=== PATIENT | female | born 1950 | race Caucasian/White ===

== ENCOUNTER → 2022-01-08 11:58 | Outpatient (BNVA) | payer OTHER, SELFPAY | PROVIDERS: Visit Provider Internal Medicine | DX: R76.8 Other specified abnormal immunological findings in serum (principal); M35.1 Other overlap syndromes | CPT/HCPCS: 36415; 80053; 81001; 82550; 85025; 85651; 86140; 86160; 86162; 86235; 86255; 86376; 86480; 86704; 86803; 87340 ==

== ENCOUNTER → 2022-01-22 15:22 | Outpatient (BNVA) | payer OTHER, SELFPAY | PROVIDERS: Visit Provider Internal Medicine | DX: R76.8 Other specified abnormal immunological findings in serum (principal); M35.1 Other overlap syndromes | CPT/HCPCS: 82728; 83540; 83735; 84100; 84443; 86480 ==

== ENCOUNTER 2022-11-05 13:47 | Outpatient (CLI) | payer OTHER, SELFPAY ==
--- NOTE | 2022-11-05 13:52 | MM_ITS ---
WS: [id number] BILATERAL 3D TOMOSYNTHESIS DIGITAL SCREENING MAMMOGRAPHY WITH CAD CLINICAL INFORMATION: SCREENING HISTORY: Screening mammogram. No current complaints. COMPARISON: TECHNIQUE: Bilateral CC and MLO views. FINDINGS: The breasts are composed of heterogeneous fibroglandular density tissue, which can limit the detectio n of small underlying mass lesions. No suspicious mass, asymmetry, calcifications, or architectural d istortion. No evidence of malignancy. Punctate and lucent centered calcifications. MM/[place] [id number] IMPRESSION: BI-RADS: 2-Benign FOLLOW UP: 1 Year Follow-up Recommend return to annual screening mammography.
== END 2022-11-05 13:48 | disposition home or self-care (01) ==
LOC: RAD 13:48
PROVIDERS: Visit Provider Family Medicine
DX: Z12.31 Encounter for screening mammogram for malignant neoplasm of breast (principal)
CPT/HCPCS: 77063; 77067

== ENCOUNTER → 2022-12-17 11:30 | Outpatient (BNVA) | payer OTHER, SELFPAY | PROVIDERS: PCP Family Medicine; Visit Provider Internal Medicine | DX: M06.9 Rheumatoid arthritis, unspecified (principal) | CPT/HCPCS: 36415; 80053; 82550; 85025; 85651; 86140 ==

== ENCOUNTER → 2022-12-17 12:59 | Outpatient (BNVA) | payer OTHER, SELFPAY | PROVIDERS: PCP Family Medicine; Visit Provider Internal Medicine | DX: M06.9 Rheumatoid arthritis, unspecified (principal); I73.9 Peripheral vascular disease, unspecified; M35.1 Other overlap syndromes; G25.81 Restless legs syndrome; M54.50 Low back pain, unspecified; R76.8 Other specified abnormal immunological findings in serum; E61.1 Iron deficiency | CPT/HCPCS: 73562 ==

== ENCOUNTER 2023-01-01 10:32 | Outpatient (CLI) | payer OTHER, SELFPAY ==
--- NOTE | 2023-01-01 13:00 | USCV_ITS ---
Kenisha Dotson Age: 72 Gender: F : 1950 Exam Date: 01/01/2023 13:28 Ordering Phys: Jonnathan Rice MD Technologist: Exam Location: [facility] [place]_ Indication: pad RIGHT LEFT Brachial 145.00 mmHg Brachial 144.00 mmHg Pressure (mmHg) Waveform Pressure (mmHg) Waveform 157.00 SENIOR SALES DIRECTOR 159.00 154.00 DPA 149.00 1.07 Ankle/Brachial Index 1.10 154.00 Pre-Exercise Toe Pressure 131.00 1.06 Pre-Exercise Toe/Brachial Index 0.90 FINDINGS Resting KYUNG 1.07 on the right and 1.10 on the left Resting TBI 1.06 on the right and 0.9 on the left CONCLUSIONS Normal resting ABIs and TBIs bilaterally, suggesting no significant arterial obstruction Dr Sobia Potts MD [facility] (Electronically Signed) Final Date: 05 January 2023 08:01 S
== END 2023-01-01 10:33 | disposition home or self-care (01) ==
PROVIDERS: PCP Family Medicine; Visit Provider Internal Medicine
DX: I73.9 Peripheral vascular disease, unspecified (principal); M35.1 Other overlap syndromes
CPT/HCPCS: 93922

== ENCOUNTER 2023-02-08 12:58 | Outpatient (CLI) | payer MEDICARE, SELFPAY ==
--- NOTE | 2023-02-08 13:30 | USCV_ITS ---
Gilles Lux Kenisha Age: 72 Gender: F : 1950 Exam Date: 02/08/2023 13:31 Ordering Phys: Jonnathan Rice MD Technologist: MANOLO Exam Location: [facility] [place] Indication: restless leg syndrome PROCEDURES: Venous duplex imaging was performed in bilateral lower extremities. The following venous structures were evaluated: common femoral vein, profunda vein, proximal portion of the greater saphenous vein, superficial femoral vein, and the popliteal vein. In addition, the posterior tibial and peroneal trunk were evaluated. Serial compression, augmentation maneuvers, and spectral Doppler flow evaluation were performed. FINDINGS: Normal 2-D Doppler and augmentation and compressibility throughout the lower extremity venous structures. Additional imaging through the proximal calf veins also reveals no thrombus. Limited evaluation of the greater saphenous vein is patent with no thrombus. CONCLUSIONS No evidence of right lower extremity DVT. No evidence of left lower extremity DVT. Damon Moore MD (Electronically Signed) Final Date: 08 Feb 2023 15:34 S
== END 2023-02-08 12:59 | disposition home or self-care (01) ==
PROVIDERS: PCP Family Medicine; Visit Provider Internal Medicine
DX: G25.81 Restless legs syndrome (principal); M54.50 Low back pain, unspecified; M35.1 Other overlap syndromes
CPT/HCPCS: 36415; 80053; 82550; 85025; 85651; 86140; 93970

== ENCOUNTER 2023-02-22 14:40 | Oncology outpatient (recurring) (ONCR) | payer OTHER, SELFPAY ==
[2023-02-22 15:58] LABS: Basophils # 0.1 10^3/uL (0.0-0.1); Basophils % 0.9 %; Eosinophils # 0.1 10^3/uL (0.0-0.8); Eosinophils % 1.1 %; Hemoglobin 11.4 g/dL (11.5-15.3); Mean Corpuscular Hemoglobin 24.9 pg (28.0-34.0); Mean Platelet Volume 10.3 fL (7.4-10.4); Monocytes # 0.9 10^3/uL (0.2-0.9); Neutrophils # 9.36 10^3/uL (1.8-7.7); Neutrophils % 74.7 %; Nucleated Red Blood Cells % 0 %; Platelet Count 294 10^3/cmm (130-400); Red Blood Count 4.58 10^6/uL (4.1-5.3); Red Cell Distribution Width 17.3 % (12.1-15.1); White Blood Count 12.5 10^3/uL (4.0-10.0)
[2023-02-22 17:12] LABS: Reticulocyte % 1.9 % (0.5-2.0)
[2023-02-22 17:36] LABS: Ferritin 96 ng/mL (15-150); Iron 26 ug/dL (37-145); Percent Saturation 7.4 % (20-50); Total Iron Binding Capacity 349 mcg/dl; Unsaturated Iron Binding 323 ug/dL (112-347)
[2023-02-22 17:52] LABS: Vitamin B12 1861 pg/mL (232-1245)
[2023-02-22 18:05] LABS: Folate Level > 20.0 ng/mL (4.8-37.3)
== END 2023-03-19 23:59 | disposition home or self-care (01) ==
PROVIDERS: PCP Family Medicine; Visit Provider Internal Medicine Hematology & Oncology
DX: D64.9 Anemia, unspecified (principal); E61.1 Iron deficiency
CPT/HCPCS: 36415; 82607; 82728; 82746; 83540; 83550; 85025; 85045

== ENCOUNTER 2023-03-25 09:52 | Oncology outpatient (recurring) (ONCR) | payer OTHER, SELFPAY ==
[2023-03-25 10:04] VITALS: BP 158/85; PULSE 73; RESP 18; TEMP 36.3; O2SAT 95
[2023-03-25 10:18] LABS: Basophils # 0.1 10^3/uL (0.0-0.1); Basophils % 0.7 %; Eosinophils # 0.3 10^3/uL (0.0-0.8); Eosinophils % 2.3 %; Hematocrit 39.5 % (37.0-47.0); Hemoglobin 12.4 g/dL (11.5-15.3); Lymphocytes # 2.1 10^3/uL (0.8-4.8); Lymphocytes % 16.8 %; Mean Corpuscular HGB Conc 31.4 g/dL (30.0-36.0); Mean Corpuscular Hemoglobin 26.7 pg (28.0-34.0); Mean Corpuscular Volume 84.9 fl (81-99); Mean Platelet Volume 9.8 fL (7.4-10.4); Monocytes % 8.1 %; Neutrophils # 9.12 10^3/uL (1.8-7.7); Neutrophils % 71.6 %; Nucleated Red Blood Cells % 0 %; Platelet Count 242 10^3/cmm (130-400); Red Blood Count 4.65 10^6/uL (4.1-5.3); Red Cell Distribution Width 15.9 % (12.1-15.1); White Blood Count 12.7 10^3/uL (4.0-10.0)
== END 2023-04-19 23:59 | disposition home or self-care (01) ==
PROVIDERS: PCP Family Medicine; Visit Provider Internal Medicine Hematology & Oncology
DX: E61.1 Iron deficiency (principal)
CPT/HCPCS: 36415; 85025

== ENCOUNTER 2023-04-22 12:25 | Oncology outpatient (recurring) (ONCR) | payer OTHER, SELFPAY ==
[2023-04-22 12:05] VITALS: BP 154/85; PULSE 83; TEMP 36.2; O2SAT 95
[2023-04-22 12:12] LABS: Basophils # 0.1 10^3/uL (0.0-0.1); Basophils % 0.8 %; Eosinophils # 0.3 10^3/uL (0.0-0.8); Eosinophils % 2.2 %; Hematocrit 41.6 % (37.0-47.0); Hemoglobin 13.3 g/dL (11.5-15.3); Lymphocytes # 2.9 10^3/uL (0.8-4.8); Lymphocytes % 24.7 %; Mean Corpuscular Hemoglobin 27.8 pg (28.0-34.0); Mean Corpuscular Volume 86.8 fl (81-99); Monocytes # 0.9 10^3/uL (0.2-0.9); Monocytes % 7.9 %; Neutrophils # 7.56 10^3/uL (1.8-7.7); Neutrophils % 64.1 %; Nucleated Red Blood Cells % 0 %; Platelet Count 229 10^3/cmm (130-400); Red Blood Count 4.79 10^6/uL (4.1-5.3); Red Cell Distribution Width 14.3 % (12.1-15.1); White Blood Count 11.8 10^3/uL (4.0-10.0)
[2023-04-22 12:36] LABS: Ferritin 57 ng/mL (15-150); Iron 45 ug/dL (37-145); Percent Saturation 14.4 % (20-50); Total Iron Binding Capacity 311 mcg/dl; Unsaturated Iron Binding 266 ug/dL (112-347)
== END 2023-05-20 23:59 | disposition home or self-care (01) ==
PROVIDERS: Nurse Practitioner Family; PCP Family Medicine; Visit Provider Internal Medicine Hematology & Oncology
DX: D50.9 Iron deficiency anemia, unspecified (principal)
CPT/HCPCS: 36415; 82728; 83540; 83550; 85025

== ENCOUNTER → 2023-08-17 14:41 | Outpatient (BNVA) | payer OTHER, SELFPAY | PROVIDERS: PCP Family Medicine; Visit Provider Orthopaedic Surgery | DX: M47.816 Spondylosis without myelopathy or radiculopathy, lumbar region (principal); M48.062 Spinal stenosis, lumbar region with neurogenic claudication | CPT/HCPCS: 72100 ==

== ENCOUNTER 2023-09-17 08:48 | Outpatient (CLI) | payer OTHER, SELFPAY ==
--- NOTE | 2023-09-17 09:30 | MR_ITS ---
WS: [id number] MRI HEAD WITHOUT CONTRAST TECHNIQUE: Sagittal T1, T2 axial, T2 axial FLAIR, axial and coronal T1 images, axial susceptibility w eighted imaging, axial diffusion weighted images, and coronal T2 images were obtained. CLINICAL INFORMATION: R26.9 - Unspecified abnormalities of gait and mobility COMPARISON: None. FINDINGS: No evidence of restricted diffusion to suggest acute ischemia. Mild small vessel changes. Mild to mod erate parenchymal volume loss. Small vessel changes in the rosales. Normal posterior fossa. Normal vascu lar flow voids at the skull base. No extra-axial fluid collections. No evidence of mass or mass effect. Paranasal sinuses and mastoid a ir cells are well aerated. Normal optic chiasm and pituitary infundibulum. No hemosiderin on the susc eptibly weighted images. Mild symmetric atrophy temporal lobes and hippocampal formations. IMPRESSION: 1. No evidence of restricted diffusion to suggest acute ischemia. 2. Mild small vessel changes. Small vessel changes in the rosales. Mild to moderate parenchymal volume loss. 3. No hemosiderin on the susceptibly weighted images. 4. Mild symmetric atrophy temporal lobes hippocampal formations.
--- NOTE | 2023-09-17 10:15 | MR_ITS ---
WS: [id number] MRI CERVICAL SPINE NONCONTRAST TECHNIQUE: Sagittal T1, T2 and STIR imaging. Axial T2, gradient, and fiesta imaging. CLINICAL INFORMATION: R26.9 - Unspecified abnormalities of gait and mobility COMPARISON: None. FINDINGS: Involuntary motion and body habitus degrades images. Straightening of the normal cervical lordosis. Moderate spondylitic changes with disc osteophyte comp lexes worse at C4-C6. Cord signal not well evaluated due to significant motion artifact. Moderate to severe central canal stenosis C4-C5 and moderate C5-C6. Mild central canal stenosis C6-C7. C2-C3: Mild bilateral bony foraminal narrowing. Mild facet arthropathy. Spinal canal is patent. C3-C4: Moderate LEFT greater than RIGHT bony foraminal narrowing. Mild facet arthropathy. Mild centra l canal stenosis. C4-C5: Disc osteophyte protrusion with moderate to severe central canal stenosis. Indentation and fla ttening of the cervical cord. Moderate bilateral bony foraminal narrowing worse on the LEFT. Moderate facet arthropathy. C5-C6: Central disc osteophyte protrusion. Moderate central canal stenosis with indentation on the ce rvical cord. Moderate to severe bilateral bony foraminal narrowing. C6-C7: Mild central canal stenosis with a shallow central protrusion. Moderate bilateral bony foramin al narrowing. C7-T1: Mild bilateral bony foraminal narrowing. Spinal canal is patent. Slight anterolisthesis T1 on T2. Small vessel changes in the rosales. Visualized brain stem structures: Normal. Prevertebral soft tissues: Normal. IMPRESSION: Limited examination due to involuntary motion artifact. 1. Straightening of the normal cervical doses with moderate spondylitic changes. 2. Disc osteophyte complexes worse at C4-C6. Moderate to severe central canal stenosis C4-C5 and mod erate C5-C6 due to central disc osteophyte protrusion with indentation and flattening of the cervical cord. Cord signal not well evaluated due to motion artifact. 3. Mild central canal stenosis C3-C4 and C6-C7. 4. Multilevel moderate to severe bony foraminal narrowing appears worse at LEFT C3-C4, bilateral C4- C5, bilateral C5-C6, and bilateral C6-C7.
== END 2023-09-17 08:49 | disposition home or self-care (01) ==
LOC: RAD 08:49
PROVIDERS: PCP Family Medicine; Visit Provider Specialist
DX: R26.9 Unspecified abnormalities of gait and mobility (principal); M48.02 Spinal stenosis, cervical region; M25.78 Osteophyte, vertebrae; M47.812 Spondylosis without myelopathy or radiculopathy, cervical region; I67.89 Other cerebrovascular disease
CPT/HCPCS: 70551; 72141

== ENCOUNTER → 2023-09-28 16:26 | Outpatient (BNVA) | payer OTHER, SELFPAY | PROVIDERS: PCP Family Medicine; Visit Provider Orthopaedic Surgery | DX: M54.50 Low back pain, unspecified (principal); M48.062 Spinal stenosis, lumbar region with neurogenic claudication; M47.12 Other spondylosis with myelopathy, cervical region; Z79.899 Other long term (current) drug therapy | CPT/HCPCS: 36415; 80053; 81003; 85025 ==

== ENCOUNTER → 2023-10-06 10:17 | Outpatient (BNVA) | payer OTHER, SELFPAY | PROVIDERS: PCP Family Medicine; Visit Provider Family Medicine | DX: Z01.818 Encounter for other preprocedural examination (principal) | CPT/HCPCS: 83036 ==

== ENCOUNTER 2023-10-18 12:27 | Observation (INO) | payer MEDICARE, SELFPAY ==
[2023-10-18] VITALS (99 sets, daily range): BP systolic 130–205; BP diastolic 63–125; PULSE 75–118; RESP 8–28; TEMP 36.1–36.7; O2SAT 85–100; BMI 38.0
--- NOTE | 2023-10-18 | XR_ITS ---
WS: [id number] C-ARM RADIOGRAPHS CERVICAL SPINE; 5 IMAGES HISTORY: ACDF, OR pic COMPARISON: None available. Intraoperative imaging during anterior cervical fusion beginning at C4-C6. Patient is intubated. IMPRESSION: Intraoperative imaging during anterior cervical disc fusion.
[2023-10-18] MEDS: sodium chloride 0.9% 1,000 ML 30 ML IV (07:38)
--- NOTE | 2023-10-18 07:42 | P.ANESASSM_ITS ---
Pre-Anesthetic Assessment Height/Weight: Height 1.52 m Weight 88.451 kg O2 Del Method Room Air 10/18/23 07:16 Preop Diagnosis: Cervical spondylosis with myelopathy Operation Date: 10/18/23 08:40 Proposed Procedures p ACDF w/ Cage w/ Instrumentation w/ Allograft w/ Navigation(C4/5,5/6)(Not Applicable) - Karthik Gross, DO Familial anesthetic complications: Slow to wake up Was Beta Hema taken within 24 hours: N/A Was Clonidine taken within 24 hours: N/A Last intake: Intake Last Liquid Date 10/17/23 Last Liquid Time 21:00 Last Solid Date 10/17/23 Last Solid Time 19:00 Social No alcohol and No tobacco Exam alert, oriented x 3, clear to auscultation bilaterally and regular rate & rhythm Airway Mallampati: Class III Dentition: chipped Metabolic Morbid Obesity [facility] [place] Mixed connective tissue disease Anesthetic Plan ASA status: 2 Anesthesia: General Risk of > 500 ml blood loss (7ml/kg in children): No Medications/Allergies Home Medications Medication Instructions Recorded Confirmed Last Taken Type cholecalciferol (vitamin D3) 125 mg PO DAILY 01/08/22 10/18/23 10/17/23 History mecobalamin (vitamin B12) 1 cap PO DAILY 01/08/22 10/18/23 10/17/23 History omeprazole 20 mg capsule,delayed 20 mg PO DAILY 01/08/22 10/18/23 10/17/23 History release ferrous sulfate 324 mg (65 mg 324 mg PO DAILY #14 tabs 03/02/22 10/18/23 10/17/23 Rx iron) tablet,delayed release hydroxychloroquine 200 mg tablet 200 mg PO BID #90 tabs 08/24/22 10/18/2310/17 Rx ibuprofen 200 mg tablet 400 mg PO Q6H PRN Pain 02/12/23 10/15/23 Unknown History duloxetine 20 mg capsule,delayed 30 mg .Route BID 04/22/23 10/18/23 10/17/23 History release (Cymbalta) Bone growth stimulator #1 ea 09/29/23 10/05/23 Unknown Rx fexofenadine 60 mg tablet (Britta 180 mg PO DAILY 10/06/23 10/18/23 10/17/23 History Allergy) meclizine 12.5 mg tablet 12.5 mg PO TID PRN dizzy 10/06/23 10/15/23 Unknown History pravastatin 10 mg tablet 10 mg PO DAILY 10/06/23 10/18/23 10/17/23 History ropinirole 1 mg tablet 2 mg PO BID 10/15/23 10/18/23 10/18/23 History Allergies Allergy/AdvReac Type Severity Reaction Status Date / Time gabapentin Allergy Severe ALGY-Swell Verified 10/15/23 09:19 Lip/Tongue/Throat Current Medications Generic Name Dose Route Start Last Admin Trade Name Freq PRN Reason Stop Dose Admin Sodium Chloride 1,000 mls @ 30 mls/hr 10/18/23 07:45 10/18/23 07:38 Sodium Chloride 0.9% IV 10/19/23 07:44 30 mls/hr .Q24H MACKENZIE Administration PFSH Anesthesia Medical History Leukocytosis Microcytic hypochromic anemia Transaminitis Family History Other Cancer Diabetes Hypertension Stroke Denies family history of Rheumatoid arthritis Lupus Hyperlipidemia Chronic kidney disease (CKD) Social History Smoking and tobacco/nicotine status: former use of tobacco/nicotine Quit status (tobacco/nicotine): has quit using Year quit tobacco: 20 years ago Former quit date comment: smoked for 10 years Second hand smoke exposure: No Alcohol intake: current Alcohol intake frequency: holidays/special occasions only Substance/Drug Use: never Data Anesthesia Cardiac Studies: No Data to Display
--- NOTE | 2023-10-18 08:36 | W.PM.OPSUD ---
Surgery/Procedure H&P Update DATE OF PROCEDURE: October 18, 2023 DATE H&P PERFORMED: 10/06/23 H&P UPDATE INFORMATION: I have reviewed H&P completed within last 30 days, I have examined patient prior to procedure and No changes to prior documentation PREOP DIAGNOSIS: Cervical spondylosis with myelopathy PLANNED PROCEDURE: Operation Date: 10/18/23 08:40 Proposed Procedures p ACDF w/ Cage w/ Instrumentation w/ Allograft w/ Navigation(C4/5,5/6)(Not Applicable) - Karthik Gross DO
[2023-10-18] MEDS: ceFAZolin 2,000 MG in sodium chloride 0.9% (plus) 50 ML 100 MG IV (09:00)
[2023-10-18] MEDS: lidocaine-epi 1% 20 mL INJ INJECTION (09:30)
[2023-10-18] MEDS: thrombin 5,000 unit SDV 5000 UNIT XX (10:18)
--- NOTE | 2023-10-18 11:00 | PM.OP ---
Operative Report Date of procedure: October 18, 2023 Pre-op diagnosis: Cervical spondylosis with radiculopathy and myelopathy Post-op diagnosis: same Procedure done: 1. Anterior diskectomy C4/5 2. Anterior discectomy C5/6 3. Insertion of cage C4/5 4. Insertion of Cage C5/6 5. Instrumentation with anterior plate from C4-C6 6. Use of allograft Surgeon: Karthik Gross DO Estimated blood loss (mL): 20 Procedure: 1. Anterior diskectomy C4/5 2. Anterior discectomy C5/6 3. Insertion of cage C4/5 4. Insertion of Cage C5/6 5. Instrumentation with anterior plate from C4-C6 6. Use of allograft The patient was taken to the operating room, where he underwent general endotracheal anesthesia without complications. He was then positioned supine on the operating table, and all areas of impingement were well padded. The arms were carefully padded and tucked at his sides. A roll was placed between the shoulder blades.. An x-ray was done to determine the appropriate level for the skin incision. The entire neck was then sterilely prepped and draped in the usual fashion. Neuromonitoring was attached prior to prepping. A transverse skin incision was made and carried down to the platysma muscle. This was then split in line with its fibers. Blunt dissection was carried down medial to the carotid sheath and lateral to the trachea and esophagus until the anterior cervical spine was visualized. A needle was placed into a disc and an x-ray was done to determine its location. The longus colli muscles were then elevated bilaterally with the electrocautery unit. Self-retaining retractors were placed deep to the longus colli muscle. Attention was brought to the C4/5 level that was confirmed on x-ray. A caspar pin was placed into the C4 vertebrae and the C5 vertebrae. The disk space was then distracted. The microscope was then brought in. A radical anterior discectomies were performed at C4/5. This included complete removal of the anterior annulus, nucleus, and posterior annulus. The posterior longitudinal ligament was removed as were the posterior osteophytes. Foraminotomies were then accomplished bilaterally. This was done using a high speed christina, kerrison rongeurs and curretes Once all of this was accomplished, the curved currette was used to check for any residual compression. The central canal was wide open as were the foramen. A high-speed bur was used to remove the cartilaginous endplates above and below the interspace. Bleeding cancellous bone was exposed. The disc space were measured and appropriate size cage were placed sterilely onto the field. Allograft graft was packed into the cages. The cage was then placed and there was good juxtaposition against the bleeding decorticated surfaces and good distraction of each interspace. Attention was brought to the next interspace. The [place] pins were removed. Bone wax was used to prevent any bleeding from occurring at the pin sites. Attention was brought to the C5/6 level that was confirmed on x-ray. A caspar pin was placed into the C5 vertebrae and the C6 vertebrae. The disk space was then distracted. The microscope was then brought in. A radical anterior discectomies were performed at C5/6. This included complete removal of the anterior annulus, nucleus, and posterior annulus. The posterior longitudinal ligament was removed as were the posterior osteophytes. Foraminotomies were then accomplished bilaterally. This was done using a high speed christina, kerrison rongeurs and curretes Once all of this was accomplished, the curved currette was used to check for any residual compression. The central canal was wide open as were the foramen. A high-speed bur was used to remove the cartilaginous endplates above and below the interspace. Bleeding cancellous bone was exposed. The disc space were measured and appropriate size cage were placed sterilely onto the field. Allograft graft was packed into the cages. The cage was then placed and there was good juxtaposition against the bleeding decorticated surfaces and good distraction of each interspace. The [place] pins were removed. Bone wax was used to prevent any bleeding from occurring at the pin sites. The appropriate size anterior cervical locking plate was chosen and bent into gentle lordosis. Two screws were then placed into each of the vertebral bodies at C4, C5 and C6. There was excellent purchase. A final x-ray was done confirming good position of the hardware and Cages. The locking screws were then applied, also with excellent purchase. Following a final copious irrigation, there was good hemostasis and no dural leaks. The carotid pulse was strong. The wounds were then closed in layers using 2-0 Vicryl suture for the platysma muscle, 2-0 Vicryl suture for the subcutaneous tissue, and 4-0 monocryl suture in a subcuticular skin closure. Glue was placed followed by application of a sterile dressing. The drain was hooked to bulb suction. A soft collar was applied. The patient was then carefully returned to the supine position on his hospital bed where he was reversed and extubated and taken to the recovery room having tolerated the procedure well.
--- NOTE | 2023-10-18 12:13 | CT_ITS ---
WS: [id number] CT ANGIOGRAM CEREBRAL AND CAROTID ARTERIES HISTORY: stroke like symptoms TECHNIQUE: CT angiogram is performed of the carotid and cerebral arteries. During arterial injection imaging is obtained from the skull vertex to the aortic arch in 1.25 mm imaging. Coronal and sagittal reformats are submitted. Additional multi planar reformats of the carotid and cerebral arteries are submitted, MIP imaging also reviewed. NASCET criteria utilized. All CT scans at [place] e at least one of these dose optimization techniques: automated exposure control; mA and/or kV adjust ment per patient size (includes targeted exams where dose is matched to clinical indication); or iter ative reconstruction. CONTRAST: Omnipaque 350; 100 mL IV. DLP: 1135.87 mGy.cm COMPARISON: None available. Noncontrast CT head: No acute intracranial hemorrhage or edema. No sulcal effacement. Very mild atrop hy and small vessel ischemic disease. Lacunar infarct adjacent to the anterior horn of the RIGHT late ral ventricle is chronic. Carotid Angiogram: Right carotid: Common carotid artery: Arises normally from the innominate artery. No significant plaque or stenosis. Internal carotid artery: There is a small amount of plaque at the bifurcation. No high-grade stenosis . There is air dissecting through the soft tissues of the neck from the recent surgery. No hematoma. External carotid artery: Patent. Left carotid: Common carotid artery: Arises normally from the aorta. No significant plaque or stenosis. Internal carotid artery: No plaque or stenosis. External carotid artery: Patent. Right vertebral artery: Unremarkable. Left vertebral artery: Unremarkable. Arises normally from the subclavian artery. Subclavian arteries: No stenosis or significant abnormality. Upper thorax: Dependent changes posteriorly. Motion artifact from breathing. Atherosclerotic changes within the aortic arch. No dissection. Thyroid gland: Normal. Osseous structures: Anterior cervical fusion hardware extends from C4-C6. Interbody spacers at C4-5 a nd C5-6. No apparent complications are noted. Recent postoperative changes in the soft tissues as exp ected. CEREBRAL ANGIOGRAM: Intracranial vertebral arteries: Normal with no significant atherosclerosis. Basilar artery: No significant stenosis or occlusion. No aneurysm. Intracranial Internal carotid arteries: Increasing calcified plaque through the cavernous carotid art eries. No thrombus or stenosis of any significance. Middle cerebral arteries: Normal. Anterior cerebral arteries and ACOM: Normal. Posterior cerebral arteries and PCOM's: Normal. Dural venous sinuses are normally enhancing. Mastoid air cells: Normal. Paranasal sinuses: Normal. Calvarium: Normal. IMPRESSION: 1. No significant cervical carotid artery stenosis, no dissection. 2. Mild atherosclerotic plaque in the cavernous portions of the intracranial carotid arteries but no occlusion. 3. No thrombus or embolism in the middle cerebral arteries. 4. Postsurgical changes of air and edema are noted in the cervical spine at the site of the cervical fusion hardware that was performed today. There is no large hematoma. 5. No intracranial edema or atrophy. 6. Mild cerebral atrophy and small vessel ischemic disease.
[2023-10-18] MEDS: iohexol 350 mg/mL 500 mL Btl (per mL) IV (12:22)
--- NOTE | 2023-10-18 12:34 | USCV_ITS ---
Kenisha Dotson Age: 73 Gender: F : 1950 Exam Date: 10/18/2023 15:55 Ordering Phys: Nader Chapin MD Technologist: CT Exam Location: [facility] [place]_ Indication: cva BP: 160 / 92 HR: 91 Rhythm: Sinus Technical Quality: Poor because of body habitus MEASUREMENTS (Male / Female) Normal Values 2D ECHO LVOT Diameter 2.0 cm LV Ejection Fraction MOD 2C 64.4 % LV Ejection Fraction 2C AL 65.7 % LA Diameter 3.6 cm Aorta at Sinotubular Diameter 1.9 cm M-MODE Aortic Annulus Diameter 2.5 cm LA Ao Ratio MM 1.6 MV E Point Septal Separation 1.2 cm DOPPLER AV Peak Velocity 172.0 cm/s LVOT Peak Velocity 139.0 cm/s AV Area Cont Eq vti 2.6 cm squared AV Area Cont Eq pk 2.7 cm squared MV E' Velocity 10.0 cm/s TR Peak Velocity 120.0 cm/s TR Peak Gradient 5.8 mmHg TV Peak E Velocity 78.0 cm/s Right Atrial Pressure 3.0 mmHg Pulmonary Artery Systolic Pressu 8.8 mmHg PV Peak Velocity 131.0 cm/s FINDINGS Left Ventricle Left ventricle is normal in size. LV systolic function is normal with EF of 60 to 65%. No regional wall abnormalities are seen. Grade 1 diastolic dysfunction Right Ventricle Normal in size and function Right Atrium Normal in size Left Atrium Normal in size Mitral Valve Structurally normal mitral valve. Mild mitral regurgitation. Aortic Valve Structurally normal aortic valve. No significant stenosis or regurgitation. Tricuspid Valve Mild tricuspid regurgitation. Insufficient TR jet to calculate RVSP Pulmonic Valve Not well visualized Pericardium Normal Aorta Normal in size IVC Appears to be normal CONCLUSIONS LV systolic function is normal with EF of 60 to 65%. Grade 1 diastolic dysfunction Mild mitral regurgitation Mild tricuspid regurgitation No comparison studies are available. Agus Salas MD (Electronically Signed) Final Date: 18 October 2023 17:59 S
--- NOTE | 2023-10-18 12:40 | ECG_ITS ---
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 Measurements Intervals [place] Rate: 89 P: 34 MS: 149 QRS: 39 QRSD: 95 T: 92 QT: 399 QTc: 487 Interpretive Statements SINUS RHYTHM No previous ECG available for comparison Electronically Signed On 10-18-2023 19:36:51 CUTTER OUT by Sobia Potts M.D. [id number]
--- NOTE | 2023-10-18 12:41 | P.CONIM_ITS ---
Providers/Reason For Consult 2 Consulting Physician/Specialty*: Nader Chapin MD, hospitalist Reason for Consult*: Left upper extremity paresis Requesting Physician: Dr. Sanchez Attending Physician: Karthik Gross DO Primary Care Provider: Chata Breen MD History of Present Illness History of Present Illness Kenisha Lux is a 73 year old female who underwent ACDF C4-C6 today. Apparently right after surgery she had no issues with moving any extremities but in the postoperative area, it was noted she was not able to move her left upper extremity. Stroke alert was immediately called. I evaluated the patient. She had no slurred speech, or lower extremity paresis. Left upper extremity was weak, and had significant drift. Hand strength itself was a weak but more preserved than strength in her elbow region. She denied any significant paresthesias. She did not have a headache. She reported she had chronic dizziness off and on during the evaluation, which is not unusual for her. Neurology evaluated her as well, and it was decided to proceed with CTA head and neck as well as CT of the neck looking for central as well as peripheral nerve causes of her deficit. After the CT scan, moving into the ICU she had significant improvement of her symptoms and was able to use the left arm relatively normally. She still had some slight complaints of diminished coordination. Currently she denies any headache. She denies any dizziness right at this time. She reports slight diminished coordination left upper extremity. She denies any problems with sensation, double vision, nausea, or lower extremity weakness. She denies any prior history of stroke, cardiac arrhythmia, or cardiac disease. Review of Systems 2 Card: Denies: chest pain Resp: Denies: dyspnea Medications/Allergies Home Medications Medication Instructions Recorded Confirmed Last Taken Type cholecalciferol (vitamin D3) 125 mg PO DAILY 01/08/22 10/18/23 10/17/23 History mecobalamin (vitamin B12) 1 cap PO DAILY 01/08/22 10/18/23 10/17/23 History omeprazole 20 mg capsule,delayed 20 mg PO DAILY 01/08/22 10/18/23 10/17/23 History release ferrous sulfate 324 mg (65 mg 324 mg PO DAILY #14 tabs 03/02/22 10/18/23 10/17/23 Rx iron) tablet,delayed release hydroxychloroquine 200 mg tablet 200 mg PO BID #90 tabs 08/24/22 10/18/23 10/17/23 Rx ibuprofen 200 mg tablet 400 mg PO Q6H PRN Pain 02/12/23 10/15/23 Unknown History duloxetine 20 mg capsule,delayed 30 mg .Route BID 04/22/23 10/18/23 10/17/23 History release (Cymbalta) Bone growth stimulator #1 ea 09/29/23 10/05/23 Unknown Rx fexofenadine 60 mg tablet (Britta 180 mg PO DAILY 10/06/23 10/18/23 10/17/23 History Allergy) meclizine 12.5 mg tablet 12.5 mg PO TID PRN dizzy 10/06/23 10/15/23 Unknown History pravastatin 10 mg tablet 10 mg PO DAILY 10/06/23 10/18/23 10/17/23 History ropinirole 1 mg tablet 2 mg PO BID 10/15/23 10/18/23 10/18/23 History hydrocodone 5 mg-acetaminophen 325 1 - 2 tab PO .Q4-6H #40 tabs 10/18/23 Unknown Rx mg tablet Allergies Allergy/AdvReac Type Severity Reaction Status Date / Time gabapentin Allergy Severe ALGY-Swell Verified 10/15/23 09:19 Lip/Tongue/Throat Current Medications Generic Name Dose Route Start Last Admin Trade Name Freq PRN Reason Stop Dose Admin Sodium Chloride 1,000 mls @ 30 mls/hr 10/18/23 07:45 10/18/23 07:38 Sodium Chloride 0.9% IV 10/19/23 07:44 30 mls/hr .Q24H MACKENZIE Administration PFSH Acute 2 PFSH: Medical History Neurologic gait disorder Restless legs syndrome Mixed connective tissue disease Leukocytosis Microcytic hypochromic anemia Transaminitis Surgical History H/O: hysterectomy Hx of tonsillectomy History of cataract surgery both eyes - 2022 Family History Other Cancer Diabetes Hypertension Stroke Denies family history of Rheumatoid arthritis Lupus Hyperlipidemia Chronic kidney disease (CKD) Social History Smoking and tobacco/nicotine status: former use of tobacco/nicotine Quit status (tobacco/nicotine): has quit using Year quit tobacco: 20 years ago Former quit date comment: smoked for 10 years Second hand smoke exposure: No Alcohol intake: current Alcohol intake frequency: holidays/special occasions only Substance/Drug Use: never Vitals/I&O/Wt Last Vital Signs Temp 98 F 10/18/23 11:40 Pulse 89 10/18/23 11:40 Resp 14 10/18/23 11:40 BP 179/87 10/18/23 11:40 Pulse Ox 94 10/18/23 11:40 O2 Del Method Room Air 10/18/23 11:40 O2 Flow Rate 8 10/18/23 11:15 10/17/23 10/18/23 10/18/23 22:59 06:59 14:59 Intake Total 50 / 50 Output Total 30 / 30 Balance 20 / 20 Weight last 48 hrs Weight 88.451 kg Physical Exam 2 Narrative: General exam is a white female, no distress, completely conversant. Neuro demonstrates an alert conversive female with a stroke score perhaps 2-3 in regards to discoordination of her left upper extremity and weakness in her left upper extremity. HEENT: Atraumatic normocephalic. Oropharynx clear. Neck, c-collar is noted Cardiovascular regular rate and rhythm without murmur, no S3 or S4 Lungs clear no wheezing or crackles Abdomen is soft with positive bowel sounds. Obese. No obvious organomegaly exams deferred Extremities no cyanosis clubbing or edema, see weakness as noted above under neurologic exam Skin no rash Data 10/18/23 12:47 10/18/23 12:47 Other Labs: I have ordered a CBC, CMP Head and neck CTA demonstrate no obvious occlusion in the vasculature. Mild plaque. Postsurgical changes in the cervical spine. No obvious CVA on exam. I reviewed this as well while the scan was being done. EKG per my review demonstrates sinus rhythm, normal axis, no acute changes A&P Assessment and plan (1) CVA (cerebral vascular accident): Patient presents postoperatively with left upper extremity paresis. According to history she did not have this coming out of surgery. This is most consistent with a CVA. Symptoms are resolving. CTA head and neck demonstrate no large vessel occlusion, current changes consistent with CVA, and no significant hematoma that would explain symptoms. Initiate aspirin 325 mg daily. Discussed and okayed with orthopedic spine surgery high intensity statin Obtain echocardiogram Telemetry Therapy evaluations Neurologic checks Plan Directly postoperative ACDF Thank you for this consultation Will continue to follow along Consult Attestations 2 Medical Necessity Statement: As per primary Diagnoses CVA (cerebral vascular accident) I63.9 Time Spent (min) 54
[2023-10-18 12:58] LABS: Basophils # 0.1 10^3/uL (0.0-0.1); Basophils % 0.6 %; Eosinophils # 0.1 10^3/uL (0.0-0.8); Eosinophils % 0.7 %; Hematocrit 43.2 % (36-47); Lymphocytes # 1.3 10^3/uL (0.8-4.8); Lymphocytes % 13.4 %; Mean Corpuscular HGB Conc 31.7 g/dL (30-55); Mean Corpuscular Hemoglobin 29.1 pg (27-33); Mean Corpuscular Volume 91.7 fl (85-98); Mean Platelet Volume 9.7 fL (7.4-10.4); Monocytes # 0.2 10^3/uL (0.2-0.9); Monocytes % 2.1 %; Neutrophils # 7.71 10^3/uL (1.8-7.7); Neutrophils % 82.6 %; Nucleated Red Blood Cells % 0 %; Platelet Count 207 10^3/cmm (157-399); Red Blood Count 4.71 10^6/uL (3.85-5.65); Red Cell Distribution Width 12.7 % (12.1-15.1); White Blood Count 9.35 10^3/uL (3.29-11.43)
--- NOTE | 2023-10-18 13:03 | PC.NURSE ---
Patient arrived to outpatient from pacu, at 1200 patient noted to have left side weakness, when raising patient arm it drops to the bedside table, patient unable to hold arm up. Patient without noted facial droop or slurred speech, Prior to coming to outpatients patient was able to Bilateral Upper Arms per PACU nurse, decision was made to Activate Stroke Alert, called at 1205.
--- NOTE | 2023-10-18 13:04 | P.HP_ITS ---
Providers/Chief Complaint 2 Admitting Physician: Karthik Gross DO Primary Care Provider: Chata Breen MD Chief Complaint: M48.062 History of Present Illness Kenisha Lux is a 73 year old female had ACDF done earlier today. Was doing well after surgery then she was transferred to the recovery side of the recovery room and also had left arm weakness. At this point her strength seems to be improving. She was sent for CTA. My review of the CTA the neck portion implants are in good position did not appear to be compressing on any nerves still awaiting the report. Review of Systems 2 General: Reports: 10 or more systems reviewed and unremarkable except in HPI and below Const: Reports: fever(s), chills, change in weight, fatigue and change in sleep pattern Eyes: Reports: eye discomfort, eye redness and dry eyes ENMT: Reports: dry mouth Musc: Reports: joint pain, joint swelling, joint stiffness and muscle weakness Medications/Allergies Home Medications Medication Instructions Recorded Confirmed Last Taken Type cholecalciferol (vitamin D3) 125 mg PO DAILY 01/08/22 10/18/23 10/17/23 History mecobalamin (vitamin B12) 1 cap PO DAILY 01/08/22 10/18/23 10/17/23 History omeprazole 20 mg capsule,delayed 20 mg PO DAILY 01/08/22 10/18/23 10/17/23 History release ferrous sulfate 324 mg (65 mg 324 mg PO DAILY #14 tabs 03/02/22 10/18/23 10/17/23 Rx iron) tablet,delayed release hydroxychloroquine 200 mg tablet 200 mg PO BID #90 tabs 08/24/22 10/18/23 10/17/23 Rx ibuprofen 200 mg tablet 400 mg PO Q6H PRN Pain 02/12/23 10/15/23 Unknown History duloxetine 20 mg capsule,delayed 30 mg .Route BID 04/22/23 10/18/23 10/17/23 History release (Cymbalta) Bone growth stimulator #1 ea 09/29/23 10/05/23 Unknown Rx fexofenadine 60 mg tablet (Britta 180 mg PO DAILY 10/06/23 10/18/23 10/17/23 History Allergy) meclizine 12.5 mg tablet 12.5 mg PO TID PRN dizzy 10/06/23 10/15/23 Unknown History pravastatin 10 mg tablet 10 mg PO DAILY 10/06/23 10/18/23 10/17/23 History ropinirole 1 mg tablet 2 mg PO BID 10/15/23 10/18/23 10/18/23 History hydrocodone 5 mg-acetaminophen 325 1 - 2 tab PO .Q4-6H #40 tabs 10/18/23 Unknown Rx mg tablet Allergies Allergy/AdvReac Type Severity Reaction Status Date / Time gabapentin Allergy Severe ALGY-Swell Verified 10/15/23 09:19 Lip/Tongue/Throat PFSH Acute 2 PFSH: Medical History Leukocytosis Microcytic hypochromic anemia Transaminitis Family History Other Cancer Diabetes Hypertension Stroke Denies family history of Rheumatoid arthritis Lupus Hyperlipidemia Chronic kidney disease (CKD) Social History Smoking and tobacco/nicotine status: former use of tobacco/nicotine Quit status (tobacco/nicotine): has quit using Year quit tobacco: 20 years ago Former quit date comment: smoked for 10 years Second hand smoke exposure: No Alcohol intake: current Alcohol intake frequency: holidays/special occasions only Substance/Drug Use: never Vitals/I&O/Wt Last Vital Signs Temp 97.4 F L 10/18/23 12:40 Pulse 91 10/18/23 12:40 Resp 12 10/18/23 12:40 BP 183/97 10/18/23 11:43 Pulse Ox 90 10/18/23 12:40 O2 Del Method Room Air 10/18/23 12:40 O2 Flow Rate 8 10/18/23 11:15 10/17/23 10/18/23 10/18/23 22:59 06:59 14:59 Intake Total 50 / 50 Output Total 30 / 30 Balance 20 / 20 Weight last 48 hrs Weight 195 lb Weight 195 lb Physical Exam 2 Narrative: Patient has good fancy stitcher strength difficulty with arm abduction. At this point patient feels like she is progressively getting better. Data 10/18/23 12:47 10/18/23 12:47 A&P Assessment and plan (1) Status post cervical spinal fusion: Will monitor and recheck in a.m. Attestations 2 Medical Necessity Statement*: Neuro deficit Coding Level of Care Code Acute Code for Chg Fwd Diagnoses Status post cervical spinal fusion Z98.1
[2023-10-18 13:20] LABS: Alanine Aminotransferase 35 U/L (0-33); Albumin Level 3.6 g/dL (3.5-5.2); Alkaline Phosphatase 101 U/L (35-105); Anion Gap 12.9 (5-19); Aspartate Amino Transferase 37 U/L (0-32); Blood Urea Nitrogen 21 mg/dL (8-23); Calcium 8.4 mg/dL (8.5-10.5); Carbon Dioxide 26 mmol/L (22-29); Chloride 102 mmol/L (98-107); Creatinine Clr Calc Pharmacy 61.9731; Globulin 3.2 g/dL (1.3-4.6); Glucose 149 mg/dL (65-115); Osmolality Calculated 290 mOsm/kg (285-295); Potassium 3.9 mmol/L (3.5-5.1); Sodium 137 mmol/L (136-145); Total Bilirubin 0.3 mg/dL (0.15-1.2); Total Protein 6.8 g/dL (6.6-8.7)
[2023-10-18] MEDS: aspirin 325 mg EC Tablet PO (13:39)
--- NOTE | 2023-10-18 14:18 | ANE.PACU2 ---
Inpatient post-anesthesia follow up: Airway intact: Yes Vital signs: Temperature 97.4 F Pulse Rate 86 Respiratory Rate 19 Blood Pressure 176/71 Pulse Oximetry 91 Oxygen Delivery Me thod Room Air Oxygen Flow Rate 8 Fraction of Inspir ed Oxygen Hydration adequate: Yes Nausea and vomiting: No Pain level: 1 Mental status: Baseline Additional Comments: stroke alert activated for extreme L upper extremity weakness discovered by phase II nursing staff. Not present in phase I. Brought to CT urgently
[2023-10-18] MEDS: sodium chloride 0.9% 1,000 ML 75 ML IV (14:37)
[2023-10-18] MEDS: duloxetine 30 mg Capsule PO (18:21)
[2023-10-18] MEDS: hydroxychloroquine 200 mg Tablet PO (18:21)
[2023-10-18] MEDS: hyDRALAzine 20 mg/mL INJ 1 mL 10 MG IVP (18:31)
[2023-10-18] MEDS: morphine 4 mg/mL SDV 1 mL 1 MG IVP (18:33)
[2023-10-18] MEDS: atorvastatin 40 mg Tablet 80 MG PO (21:35)
[2023-10-18] MEDS: ropinirole 2 mg Tablet PO (21:35)
[2023-10-19] VITALS (32 sets, daily range): BP systolic 114–189; BP diastolic 62–114; PULSE 92–107; RESP 17–34; TEMP 36.7; O2SAT 90–95
[2023-10-19] MEDS: hyDRALAzine 20 mg/mL INJ 1 mL 10 MG IVP ×2 (00:57→07:15)
[2023-10-19] MEDS: morphine 4 mg/mL SDV 1 mL 1 MG IVP (03:05)
[2023-10-19 04:42] LABS: Basophils % 0.1 %; Hematocrit 41.6 % (36-47); Lymphocytes # 1.4 10^3/uL (0.8-4.8); Lymphocytes % 6.5 %; Mean Corpuscular HGB Conc 32.2 g/dL (30-55); Mean Corpuscular Hemoglobin 28.8 pg (27-33); Mean Corpuscular Volume 89.5 fl (85-98); Mean Platelet Volume 9.9 fL (7.4-10.4); Monocytes # 1.3 10^3/uL (0.2-0.9); Monocytes % 5.7 %; Neutrophils # 19.19 10^3/uL (1.8-7.7); Neutrophils % 87.2 %; Nucleated Red Blood Cells % 0 %; Platelet Count 255 10^3/cmm (157-399); Red Blood Count 4.65 10^6/uL (3.85-5.65); Red Cell Distribution Width 12.9 % (12.1-15.1); White Blood Count 22.01 10^3/uL (3.29-11.43)
[2023-10-19] MEDS: sodium chloride 0.9% 1,000 ML 75 ML IV (04:42)
[2023-10-19 05:00] LABS: Estmated Average Glucose 148; Hemoglobin A1C 6.8 % (4.0-6.0)
[2023-10-19 05:02] LABS: Alanine Aminotransferase 32 U/L (0-33); Albumin Level 3.4 g/dL (3.5-5.2); Alkaline Phosphatase 86 U/L (35-105); Anion Gap 12.7 (5-19); Aspartate Amino Transferase 38 U/L (0-32); Blood Urea Nitrogen 17 mg/dL (8-23); Calcium 8.7 mg/dL (8.5-10.5); Carbon Dioxide 28 mmol/L (22-29); Chloride 104 mmol/L (98-107); Creatinine Clr Calc Pharmacy 61.9731; Globulin 3.2 g/dL (1.3-4.6); Glucose 145 mg/dL (65-115); Osmolality Calculated 294 mOsm/kg (285-295); Potassium 4.7 mmol/L (3.5-5.1); Sodium 140 mmol/L (136-145); Total Bilirubin 0.5 mg/dL (0.15-1.2); Total Protein 6.6 g/dL (6.6-8.7)
[2023-10-19 05:07] LABS: Chol HDL Ratio 2.27 mg/dL (0.0-4.40); Cholesterol 145 mg/dL (0-200); HDL Cholesterol 64 mg/dL (60-100); LDL Cholesterol Calculated 70 mg/dL (50-129); LDL HDL Ratio 1.09 RATIO (0.00-3.22); Triglycerides 56 mg/dL (0-150)
--- NOTE | 2023-10-19 07:44 | P.PN_ITS ---
Documented by User: [email or web address] 10/19/23 08:02 Subjective 2 Subjective: Patient resting in bed this morning on room air, denies pain at this time. Ms. Campoverde reports that the movement in her left arm is back to normal. Plans to get up in chair and eat breakfast this morning, reports having to get up multiple times in the night to urinate states this is normal for her during a flare up. Medications: Reviewed: Yes Vitals/I&O/Wt Last Vital Signs Temp 98.1 F 10/19/23 00:30 Pulse 95 10/19/23 07:22 Resp 20 H 10/19/23 07:00 BP 169/73 10/19/23 06:45 Pulse Ox 91 10/19/23 07:00 O2 Del Method Nasal Cannula 10/19/23 07:00 O2 Flow Rate 2 10/19/23 07:00 10/18/23 10/19/23 10/19/23 22:59 06:59 14:59 Intake Total 120 / 870 1000 / 1870 Output Total 350 / 380 Balance -230 / 490 1000 / 1490 Weight last 48 hrs Weight 195 lb Weight 195 lb Physical Exam 2 Narrative: General exam is a white female, no distress, completely conversant. Neuro demonstrates an alert conversive female with a stroke score perhaps 0 this mornin, no evidence of discoordination of her left upper extremity or weakness in her left upper extremity this morning. HEENT: Atraumatic normocephalic. Oropharynx clear. Neck, c-collar is noted Cardiovascular regular rate and rhythm without murmur, no S3 or S4 Lungs clear no wheezing or crackles Abdomen is soft with positive bowel sounds. Obese. No obvious organomegaly exams deferred Extremities no cyanosis, or clubbing. Edema 2+ noted to left lower ankle. Skin no rash Data 10/19/23 04:12 10/19/23 04:12 A&P Assessment and plan (1) CVA (cerebral vascular accident): Patient presents postoperatively with left upper extremity paresis. According to history she did not have this coming out of surgery. This is most consistent with a CVA. Symptoms are resolving. CTA head and neck demonstrate no large vessel occlusion, current changes consistent with CVA, and no significant hematoma that would explain symptoms. Continue aspirin 325 mg daily. Discussed and okayed with orthopedic spine surgery high intensity statin Echocardiogram 1/29/24 demonstrated normal EF of 60-65% with Grade 1 diastolic dysfunction, mild mitral regurgitation, mild tricuspid regurgitation. Continue Telemetry Therapy evaluations Neurologic checks Plan Directly postoperative ACDF Thank you for this consultation Will continue to follow along Coding Level of Care Code 30087 Diagnoses CVA (cerebral vascular accident) I63.9 Time Spent (min) 24 Documented by User: Nader Chapin MD 10/19/23 10:36 Data 10/19/23 04:12 10/19/23 04:12 A&P Assessment and plan (1) CVA (cerebral vascular accident): Patient presents postoperatively with left upper extremity paresis. According to history she did not have this coming out of surgery. This is most consistent with a CVA. Symptoms are resolving. CTA head and neck demonstrate no large vessel occlusion, current changes consistent with CVA, and no significant hematoma that would explain symptoms. Continue aspirin 325 mg daily. Discussed and okayed with orthopedic spine surgery high intensity statin Echocardiogram 10/18/23 demonstrated normal EF of 60-65% with Grade 1 diastolic dysfunction, mild mitral regurgitation, mild tricuspid regurgitation. Neurology follow-up 2 weeks, primary care provider 3 to 5 days Plan Directly postoperative ACDF Leukocytosis. Check urinalysis Thank you for this consultation Likely discharge today. Would like urinalysis checked prior to discharge. Attestations 2 Medical Necessity Statement*: As per primary Diagnoses CVA (cerebral vascular accident) I63.9 Time Spent (min) 24
--- NOTE | 2023-10-19 08:03 | P.DS_ITS ---
Discharge Providers Date of Admission: 10/18/23 12:27 Date of Discharge: October 19, 2023 Attending Provider at Admission: Karthik Gross DO Attending Provider at Discharge: Karthik Gross DO Primary Care Provider: Chata Breen MD Diagnoses at Discharge Discharge Diagnosis (1) CVA (cerebral vascular accident): Status: Acute Reason for Visit Reason for Visit: M48.062 Physical Exam Narrative: Patient back to full strength at this point will discharge home. Discharge Data Studies Completed and Pending Completed Studies During Hospitalization Category Date Time Status CTA head neck [CT angio headneck* [id number]] Stat Cat Scan 10/18/23 12:13 Completed CV. echo complete* [id number] Routine Ultrasound 10/18/23 12:34 Completed Pending at discharge Category Date Time Status C-arm Fluoroscopy [id number] Routine Exams 10/18/23 07:01 Ordered XR cervical spine 3V* [id number] Routine Exams 10/18/23 Taken Urinalysis and Microscopic Routine Lab 10/19/23 06:47 Uncollected Laboratory Results WBC 22.01 10^3/uL (3.29-11.43) H 10/19/23 04:12 RBC 4.65 10^6/uL (3.85-5.65) 10/19/23 04:12 Hgb 13.40 g/dL (11.27-16.99) 10/19/23 04:12 Hct 41.6 % (36-47) 10/19/23 04:12 MCV 89.5 fl (85-98) 10/19/23 04:12 MCH 28.8 pg (27-33) 10/19/23 04:12 MCHC 32.2 g/dL (30-55) 10/19/23 04:12 RDW 12.9 % (12.1-15.1) 10/19/23 04:12 Plt Count 255 10^3/cmm (157-399) 10/19/23 04:12 MPV 9.9 fL (7.4-10.4) 10/19/23 04:12 Neut % (Auto) 87.2 % 10/19/23 04:12 Lymph % (Auto) 6.5 % 10/19/23 04:12 Edmonson % (Auto) 5.7 % 10/19/23 04:12 Eos % (Auto) 0.0 % 10/19/23 04:12 Baso % (Auto) 0.1 % 10/19/23 04:12 Neut # (Auto) 19.19 10^3/uL (1.8-7.7) H 10/19/23 04:12 Lymph # (Auto) 1.4 10^3/uL (0.8-4.8) 10/19/23 04:12 Edmonson # (Auto) 1.3 10^3/uL (0.2-0.9) H 10/19/23 04:12 Eos # (Auto) 0.0 10^3/uL (0.0-0.8) 10/19/23 04:12 Baso # (Auto) 0.0 10^3/uL (0.0-0.1) 10/19/23 04:12 Nucleated RBC % (auto) 0 % 10/19/23 04:12 Nucleated RBCs # 0.0 /100WBC 10/19/23 04:12 Sodium 140 mmol/L (136-145) 10/19/23 04:12 Potassium 4.7 mmol/L (3.5-5.1) 10/19/23 04:12 Chloride 104 mmol/L (98-107) 10/19/23 04:12 Carbon Dioxide 28 mmol/L (22-29) 10/19/23 04:12 Anion Gap 12.7 (5-19) 10/19/23 04:12 BUN 17 mg/dL (8-23) 10/19/23 04:12 Creatinine 0.7 mg/dL (0.5-0.9) 10/19/23 04:12 GFR Calculation Not Reportable 10/19/23 04:12 Glucose 145 mg/dL (65-115) H 10/19/23 04:12 Estimat Average Glucose 148 10/19/23 04:12 Hemoglobin A1c 6.8 % (4.0-6.0) H 10/19/23 04:12 Calculated Osmolality 294 mOsm/kg (285-295) 10/19/23 04:12 Calcium 8.7 mg/dL (8.5-10.5) 10/19/23 04:12 Total Bilirubin 0.5 mg/dL (0.15-1.2) 10/19/23 04:12 AST 38 U/L (0-32) H 10/19/23 04:12 ALT 32 U/L (0-33) 10/19/23 04:12 Alkaline Phosphatase 86 U/L (35-105) 10/19/23 04:12 Total Protein 6.6 g/dL (6.6-8.7) 10/19/23 04:12 Albumin 3.4 g/dL (3.5-5.2) L 10/19/23 04:12 Globulin 3.2 g/dL (1.3-4.6) 10/19/23 04:12 Triglycerides 56 mg/dL (0-150) 10/19/23 04:12 Cholesterol 145 mg/dL (0-200) 10/19/23 04:12 LDL Cholesterol, Calc 70 mg/dL (50-129) 10/19/23 04:12 HDL Cholesterol 64 mg/dL (60-100) 10/19/23 04:12 LDL/HDL Ratio 1.09 RATIO (0.00-3.22) 10/19/23 04:12 Cholesterol/HDL Ratio 2.27 mg/dL (0.0-4.40) 10/19/23 04:12 Vitals Last Vital Signs Temp 98.1 F 10/19/23 00:30 Pulse 95 10/19/23 07:22 Resp 20 H 10/19/23 07:00 BP 169/73 10/19/23 06:45 Pulse Ox 91 10/19/23 07:00 O2 Del Method Nasal Cannula 10/19/23 07:00 O2 Flow Rate 2 10/19/23 07:00 Discharge Plan Discharge Patient Disposition: Home Condition: Stable Prescriptions: New hydrocodone-acetaminophen 5-325 mg tablet 1 - 2 tab PO .Q4-6H Qty: 40 0RF Continued omeprazole 20 mg capsule,delayed release(DR/EC) 20 mg PO DAILY cholecalciferol (vitamin D3) 125 mg PO DAILY mecobalamin (vitamin B12) 1 cap PO DAILY fexofenadine [Britta Allergy] 60 mg tablet 180 mg PO DAILY ferrous sulfate 324 mg (65 mg iron) tablet,delayed release (DR/EC) 324 mg PO DAILY Qty: 14 0RF duloxetine [Cymbalta] 20 mg capsule,delayed release(DR/EC) 30 mg .ROUTE BID Rx Instructions: 30 mg twice a day; pravastatin 10 mg tablet 10 mg PO DAILY meclizine 12.5 mg tablet 12.5 mg PO TID PRN (Reason: dizzy) ibuprofen 200 mg tablet 400 mg PO Q6H PRN (Reason: Pain) hydroxychloroquine 200 mg tablet 200 mg PO BID Qty: 90 1RF (DME) Bone growth stimulator See Rx Instructions .Route .MEDSUPPLY Qty: 1 0RF Rx Instructions: As directed ropinirole 1 mg tablet 2 mg PO BID Rx Instructions: TAKE 1 TABLET BY MOUTH IN THE MORNING, NOON AND 2 AT BEDTIME Discharge Orders: Discharge Order (Routine); Ordered 10/19/23 Ordered By: Karthik Gross Discharge Diet: Advance as tolerated Discharge Activity: Limit activity as instructed Activity Restrictions/Additional Instructions: Thank you for choosing [facility] for your care! The following is a list of instructions, from your provider, to follow upon your discharge to ensure you have the optimal recovery from your recent injury or surgery. Anterior Cervical Discectomy and Fusion: What to Expect at Home Your Recovery Follow-up care is a gonzalez part of your treatment and safety. Be sure to make and go to all appointments, and call your doctor if you are having problems. If you do not already have a follow-up appointment made, call office in the next 1-3 days to make follow up appointment for 2 weeks at [phone]. It is also a good idea to know your test results and keep a list of the medicines you take. You can expect your neck to feel stiff or sore after surgery. This should improve in the weeks after surgery. But it may take 4 to 6 months for you to get better completely. You may have trouble sitting or standing in one position for very long and may need pain medicine in the weeks after your surgery. It may take 4 to 6 weeks to get back to your usual activities, but it may depend on what kind of surgery you had. Your throat will feel sore and it may be difficult to swallow for the first 3 days after your surgery. As long as you can get liquids down without difficulty, this should slowly improve, otherwise call our office or seek medical attention if it becomes increasingly difficult to get anything down including liquids. Avoid hot liquids for first 3-5 days. Soothing foods/liquids such as jello, pudding, and luke warm soups are recommended until swallowing improves. Staying elevated will also help, it's advised you keep propped up at while sleeping to help reduce the swelling. You may use an ice pack directly on your incision or around it on the front of your neck, using a cloth to protect your skin; and a heating pad to the back of your neck as needed. Do not use over the counter anti-inflammatory medications (Ibuprofen, Motrin, Aleve, Advil, etc) Taking these meds after having a fusion can delay fusion rates, we recommend you avoid them for the first 3 months after your surgery[address] Dr. Gross may advise you to work with a physical therapist to strengthen the muscles around your neck and back - this will be discussed at your follow - up appointments. The pain or numbness you were having in your arms before surgery should get better or go away completely. This care sheet gives you a general idea about how long it will take for you to recover. But each person recovers at a different pace. Follow the steps below to get better as quickly as possible. How can you care for yourself at home? Activity ? Rest when you feel tired. Getting enough sleep will help you recover. ? Try to walk each day. Start by walking a little more than you did the day before. Bit by bit, increase the amount you walk. Walking boosts blood flow and helps prevent pneumonia and constipation. Walking may also decrease your muscle soreness after surgery. ? No lifting anything that is more that 5 pounds. This may include heavy grocery bags and milk containers, a heavy briefcase or backpack, cat litter or dog food bags, a child, or a vacuum ditch cleaner. ? Avoid strenuous activities, such as bicycle riding, jogging, weightlifting, or aerobic exercise, until your doctor says it is okay. ? Do not drive until your follow-up visit after your surgery, or until your doctor says it isokay. ? Avoid taking long car trips for 2 to 4 weeks after surgery. Your neck may become tired and painful from sitting too long in one position. ? You will probably need to take 4 to 6 weeks off from work. It depends on the type of work you do and how you feel. ? You may have sex as soon as you feel able, but avoid positions that put stress on your neck or cause pain. Diet ? You can eat your normal diet. If your stomach is upset, try bland, low-fat foods like plain rice, broiled chicken, toast, and yogurt ? Drink plenty of fluids. If you have kidney, heart, or liver disease and have to limit fluids, talk with your doctor before you increase the amount of fluids you drink. ? You may notice that your bowel movements are not regular right after your surgery. This is common. Try to avoid constipation and straining with bowel movements. You may want to take a fiber supplement every day. If you have not had a bowel movement after a couple of days, ask your doctor about taking a mild laxative. Medicines ? Take pain medicines exactly as directed. 1. If Dr. Gross gave you a prescription medicine for pain, take lt as prescribed. 2. Do not take two or more pain medicines at the same time unless the doctor told you to. Many pain medicines have acetaminophen, which is Tylenol. Too much acetaminophen {Tylenol) can be harmful. 3. If you think your pain pill is making you sick to your stomach: 4. Take your pills after meals (unless your doctor has told you not to). 5. Ask your Dr. for a different pain pill. Incisioncare ? Remove your dressing 48hours after your surgery. Ok to shower and get the incision wet. Do not overtly wash your incision. When done, pad dry, leave open to air thereafter. Avoid creams and ointments directly on your incision. ? Your sutures in the incision will dissolve and fall out on their own. ? Keep the area clean and dry. You may cover it with a gauze bandage if it weeps or rubs against clothing; if you choose to do this, change the dressing everyday. Other instructions ? Use a heating pad, hot water bottle, or gentle massage on your back to reduce stiffness. Avoid putting heat on your incision When should you call for help? ? Call 911 anytime you think you may need emergency care. For example, call if: ? You pass out (lose consciousness). ? You have sudden chest pain and shortness of breath, or you cough upblood. ? You cannot swallow. ? You have severe pain in your neck or back. ? Call your Dr. or seek immediate medical care if: ? You have pain that does not get better after you take pain pills. ? You have loose stitches, or your incision comes open. ? You have blood or fluid draining from the incision. ? You have signs of infection, such as: 1. Increased pain, swelling, warmth, or redness. 2. Red streaks leading from the site. 3. Pus draining from the site. 4. Swollen lymph nodes in your neck or armpits. 5. A fever. ? You have severe pain in your arms. ? You have new or increased weakness or numbness in your arms. ? Watch closely for any changes in your health, and be sure to contact your doctor if: ? You do not have a bowel movement after taking a laxative. Discharge Attestations Time Spent in Discharge Care*: less than 30 min Quality Metrics Clinical Quality Measures [ No reported AMI, CVA or VTE this stay] Coding Level of Care Code Acute Code for Chg Fwd Diagnoses CVA (cerebral vascular accident) I63.9
[2023-10-19] MEDS: pantoprazole DR 40 mg Tablet PO (08:19)
[2023-10-19] MEDS: duloxetine 30 mg Capsule PO (08:19)
[2023-10-19] MEDS: aspirin 325 mg EC Tablet PO (08:19)
[2023-10-19] MEDS: ropinirole 2 mg Tablet PO (08:19)
[2023-10-19] MEDS: hydroxychloroquine 200 mg Tablet PO (08:20)
[2023-10-19 10:14] LABS: Bilirubin Urine Neg (Negative); Blood Urine Neg (Negative); Glucose Urine UA Norm (Normal); Ketones Urine Negative (Negative); Leukocyte Esterase Urine Negative (Negative); Nitrate Urine Negative (Negative); Protein Urine Neg (Negative); Specific Gravity, Urine 1.015 (1.005-1.030); Urine Appearance SL Hazy (CLEAR); Urine Color Yellow (Yellow); Urobilinogen Urine Norm (Negative); pH Urine 6 (5-7)
[2023-10-19 10:18] LABS: Bacteria Urine TRACE /hpf; Mucus Urine TRACE /hpf; RBC Urine 0-4 /hpf (0-2); Squamous Epithelial Cell Urine 0-4 /hpf (0-5); WBC Urine 0-4 /hpf (0-5)
[2023-10-19 10:19] LABS: Add Urine Culture? No
--- NOTE | 2023-10-19 13:24 | PC.NURSE ---
Shift SUmmary/Discharge...... uneventful shift. Patient was up to a chair for most of the morning. Alert to person, place, time, and situation. Neurological or physical defecits noted. Left sided weakness no longer present. Discharged at 11am. New medication, discontinued medications, wound care, activity, and upcoming appointment education reviewed with the patient. IV removed.
== END 2023-10-19 13:27 | disposition home or self-care (01) ==
LOC: ICU 12:30
PROVIDERS: Internal Medicine; Admitting Provider Orthopaedic Surgery; PCP Family Medicine; Visit Provider Orthopaedic Surgery
PROC: 0RB30ZZ Excision of Cervical Vertebral Disc, Open Approach (ICD-10-PCS; CPT 22551; principal; 2023-10-18 08:30)
DX: M47.12 Other spondylosis with myelopathy, cervical region (principal); M54.12 Radiculopathy, cervical region; I63.9 Cerebral infarction, unspecified; Z87.891 Personal history of nicotine dependence
CPT/HCPCS: 20930; 22551; 22552; 22845; 22853 ×2; 36415; 70496; 70498; 72040; 76000; 80053; 80061; 81001; 83036; 85025; 92507; 92523; 92610; 93005; 93306; 96376; 97161; C1713; C1763; C9359; G0378; J0330; J0360; J0690; J1100; J2270; J2405; J2704; J3010; J3490; J7030; Q9967

== ENCOUNTER → 2023-11-02 10:21 | Outpatient (BNVA) | payer MEDICARE, SELFPAY | PROVIDERS: PCP Family Medicine; Visit Provider Orthopaedic Surgery | DX: Z47.89 Encounter for other orthopedic aftercare (principal); Z98.1 Arthrodesis status; M35.00 Sjogren syndrome, unspecified | CPT/HCPCS: 99024 ==

== ENCOUNTER → 2023-11-10 14:44 | Outpatient (BNVA) | payer MEDICARE, SELFPAY | PROVIDERS: PCP Family Medicine; Visit Provider Specialist | DX: G25.81 Restless legs syndrome (principal); M47.12 Other spondylosis with myelopathy, cervical region; Z98.1 Arthrodesis status; M77.8 Other enthesopathies, not elsewhere classified; M75.82 Other shoulder lesions, left shoulder | CPT/HCPCS: 20550; 99215; J1030; J3490 ==

== ENCOUNTER → 2023-11-22 13:51 | Outpatient (BNVA) | payer MEDICARE, SELFPAY | PROVIDERS: PCP Family Medicine; Referring Provider Internal Medicine; Visit Provider Dermatology | DX: D48.5 Neoplasm of uncertain behavior of skin (principal); L57.0 Actinic keratosis; I87.2 Venous insufficiency (chronic) (peripheral); B07.8 Other viral warts; L73.8 Other specified follicular disorders; L82.1 Other seborrheic keratosis; M79.3 Panniculitis, unspecified | CPT/HCPCS: 11102; 17000; 17110; 99204 ==

== ENCOUNTER → 2023-12-02 13:06 | Outpatient (BNVA) | payer MEDICARE, SELFPAY | PROVIDERS: PCP Family Medicine; Visit Provider Orthopaedic Surgery | DX: Z98.1 Arthrodesis status (principal); M54.50 Low back pain, unspecified | CPT/HCPCS: 72040; 99024 ==

== ENCOUNTER → 2024-01-13 07:50 | Outpatient (BNVA) | payer MEDICARE, SELFPAY | PROVIDERS: PCP Family Medicine; Visit Provider Orthopaedic Surgery | DX: Z98.1 Arthrodesis status (principal) | CPT/HCPCS: 72040; 99024 ==

== ENCOUNTER → 2024-03-30 14:16 | Outpatient (BNVA) | payer MEDICARE, SELFPAY | PROVIDERS: PCP Family Medicine; Visit Provider Internal Medicine Rheumatology | DX: R76.8 Other specified abnormal immunological findings in serum (principal); M35.00 Sjogren syndrome, unspecified; M19.90 Unspecified osteoarthritis, unspecified site; Z79.899 Other long term (current) drug therapy; Z71.85 Encounter for immunization safety counseling; Z11.1 Encounter for screening for respiratory tuberculosis; Z11.59 Encounter for screening for other viral diseases; Z87.891 Personal history of nicotine dependence | CPT/HCPCS: 80076; 82565; 85025; 85651; 86140; 86704; 87340; 99215 ==

== ENCOUNTER → 2024-04-13 07:09 | Outpatient (BNVA) | payer MEDICARE, SELFPAY | PROVIDERS: PCP Family Medicine; Visit Provider Orthopaedic Surgery | DX: Z98.1 Arthrodesis status (principal); M54.9 Dorsalgia, unspecified | CPT/HCPCS: 72040; 99214 ==

== ENCOUNTER 2024-05-26 10:50 | Outpatient (CLI) | payer MEDICARE, SELFPAY ==
--- NOTE | 2024-05-26 11:00 | MR_ITS ---
WS: [id number] MRI LUMBAR SPINE NONCONTRAST TECHNIQUE: Sagittal T1, T2 and STIR imaging. Axial T1 and T2 imaging. CLINICAL INFORMATION: back pain COMPARISON: Prior outside examination 10/22/2022 FINDINGS: 4 nonrib-bearing lumbar vertebral bodies considered L1-L4 for the purposes of this dictation. Countin g performed from the craniocervical junction. First sacral segment considered L5. T12-L1: Mild annular bulging. Mild facet arthropathy. Spinal canal and foramen are patent. L1-L2: Mild annular bulging. Mild facet arthropathy. Spinal canal and foramen are patent. L2-L3: Mild annular bulging. Mild facet arthropathy. Mild RIGHT and no significant LEFT foraminal hortencia rowing. L3-L4: Mild annular bulging. Mild central canal stenosis. Slight impingement on the subarticular rece ss bilaterally. Moderate facet arthropathy. Foramen are patent. L4-L5: Shallow central protrusion. Slight impingement traversing L5 nerve roots bilaterally. Moderate facet arthropathy with small facet effusions. Mild RIGHT and no significant LEFT foraminal narrowing . L5-S1: L5 is sacralized. Spinal canal and foramen are patent. Partially visualized small LEFT renal cyst. Visualized pelvic bony structures: Normal. Paravertebral soft tissues: Normal. Overall no significant changes compared to the prior outside study MR/MR lumbar spine wo con* [id number] IMPRESSION: 1. 4 nonrib-bearing lumbar vertebral bodies considered L1-L4 for the purposes of this dictation. First sacral segment considered L5. Counting performed from the craniocervical junction. 2. Mild central canal stenosis L3-4 with slight impingement on the subarticula r recess bilaterally. 3. Shallow central protrusion L4-5 with slight impingement on the traversing L 5 nerve roots in the subarticular recess. Mild RIGHT foraminal narrowing. Mild central canal stenosis. 4. Moderate facet arthropathy L3-L4 and L4-L5 with small facet effusions.
--- NOTE | 2024-05-26 12:15 | MR_ITS ---
WS: [id number] MRI CERVICAL SPINE NONCONTRAST TECHNIQUE: Sagittal T1, T2 and STIR imaging. Axial T2, gradient, and fiesta imaging. CLINICAL INFORMATION: post op COMPARISON: MRI 09/17/2023 FINDINGS: Some images degraded by motion. Straightening of the normal cervical lordosis. Mild cervical curve. I nterval postoperative changes ACDF C4-C6 with significantly improved central canal stenosis compared to previous. C2-C3: Normal. C3-C4: Mild bilateral bony foraminal narrowing LEFT greater than RIGHT. Mild facet arthropathy. Mild central canal stenosis with a small central protrusion. This appears slightly progressed compared to previous with a small annular fissure. C4-C5: Postoperative changes ACDF. Mild bilateral bony foraminal narrowing. Mild bony central canal s tenosis. Mild facet arthropathy. C5-C6: Postoperative changes ACDF. Mild bony central canal stenosis. Moderate LEFT greater than RIGHT bony foraminal narrowing. C6-C7: Postoperative changes ACDF. Moderate bilateral bony foraminal narrowing. Mild residual central canal stenosis. C7-T1: No significant disc bulging. Mild bilateral bony foraminal narrowing. Spinal canal is patent. Visualized brain stem structures: Normal. Prevertebral soft tissues: Normal. Small vessel changes in the rosales. MR/MR cervical spin wo con* [id number] IMPRESSION: 1. Postoperative changes ACDF C4-C6 new compared to previous with significantl y improved central canal stenosis. 2. Mild disc bulging C3-C4 with slight contact of the cervical cord and mild c entral canal stenosis. Tiny annular fissure at this level. This appears slightl y progressed compared to previous. 3. Multilevel bony foraminal narrowing described above. 4. No other significant changes.
== END 2024-05-26 10:51 | disposition home or self-care (01) ==
LOC: RAD 10:51
PROVIDERS: PCP Family Medicine; Visit Provider Orthopaedic Surgery
DX: Z98.1 Arthrodesis status (principal); M47.892 Other spondylosis, cervical region; M99.61 Osseous and subluxation stenosis of intervertebral foramina of cervical region
CPT/HCPCS: 72141; 72148

== ENCOUNTER → 2024-08-08 10:45 | Outpatient (BNVA) | payer MEDICARE, SELFPAY | PROVIDERS: PCP Family Medicine; Visit Provider Internal Medicine Rheumatology | DX: Z79.899 Other long term (current) drug therapy (principal); M35.00 Sjogren syndrome, unspecified; R76.8 Other specified abnormal immunological findings in serum; M19.90 Unspecified osteoarthritis, unspecified site; Z71.85 Encounter for immunization safety counseling | CPT/HCPCS: 99214 ==

== ENCOUNTER → 2024-11-13 14:13 | Outpatient (BNVA) | payer MEDICARE, SELFPAY | PROVIDERS: PCP Family Medicine; Visit Provider Specialist | DX: G25.81 Restless legs syndrome (principal); R48.2 Apraxia; M79.7 Fibromyalgia; E66.9 Obesity, unspecified; R26.9 Unspecified abnormalities of gait and mobility; M48.062 Spinal stenosis, lumbar region with neurogenic claudication; M75.80 Other shoulder lesions, unspecified shoulder; R20.0 Anesthesia of skin; R20.2 Paresthesia of skin; Z98.1 Arthrodesis status | CPT/HCPCS: 99214 ==

== ENCOUNTER → 2024-11-30 13:33 | Outpatient (BNVA) | payer MEDICARE, SELFPAY | PROVIDERS: PCP Family Medicine; Referring Provider Specialist; Visit Provider Specialist | DX: R20.0 Anesthesia of skin (principal); R20.2 Paresthesia of skin; M47.22 Other spondylosis with radiculopathy, cervical region | CPT/HCPCS: 95911 ==

== ENCOUNTER → 2024-12-07 13:50 | Outpatient (BNVA) | payer MEDICARE, SELFPAY | PROVIDERS: PCP Family Medicine; Visit Provider Orthopaedic Surgery | DX: Z98.1 Arthrodesis status (principal) | CPT/HCPCS: 72040; 99203 ==

== ENCOUNTER → 2024-12-14 10:22 | Outpatient (BNVA) | payer MEDICARE, SELFPAY | PROVIDERS: PCP Family Medicine; Visit Provider Orthopaedic Surgery | DX: M79.643 Pain in unspecified hand (principal); M25.531 Pain in right wrist; M25.532 Pain in left wrist; G56.03 Carpal tunnel syndrome, bilateral upper limbs | CPT/HCPCS: 73130; 99214 ==

== ENCOUNTER 2024-12-21 09:54 | Day surgery (SDC) | payer MEDICARE, SELFPAY ==
[2024-12-21] VITALS (9 sets, daily range): BP systolic 109–159; BP diastolic 55–80; PULSE 69–90; RESP 13–24; TEMP 36.4; O2SAT 92–100; BMI 37.0
--- NOTE | 2024-12-21 10:43 | PM.HP ---
Providers/Chief Complaint Admitting Physician: Domo Purdy MD Primary Care Provider: Chata Breen MD Chief Complaint: Left carpal tunnel syndrome History of Present Illness Kenisha Lux is a 74 year old female who has been referred over by Dr. Gross for evaluation of bilateral carpal tunnel syndrome. She has previously had a right carpal tunnel release years ago and it seems to be having that coming back. Also has numbness tingling and complaints of carpal tunnel symptoms on the left hand. EMG studies done have demonstrated compression of median nerve at the wrist. Clinical exam is being consistent with this also. Review of Systems General: Reports: 10 or more systems reviewed and unremarkable except in HPI and below Const: Denies: fever(s), chills or body aches Eyes: Denies: change in vision Card: Denies: chest pain, dyspnea on exertion or orthopnea Resp: Denies: dyspnea, productive cough or wheezing GI: Denies: abdominal pain, nausea or vomiting Musc: Denies: neck pain, back pain, extremity pain, joint pain, joint swelling or limited range of motion Skin/Breast: Denies: changes in skin color or dry skin Neuro: Denies: numbness in extremities or weakness in extremities Psych: Denies: anxiety or depression Jer/Lymph: Denies: easy bruising or easy bleeding Medications/Allergies Home Medications ?Medication ?Instructions ?Recorded ?Confirmed ?Last Taken ?Type cholecalciferol (vitamin D3) 125 mg PO DAILY 01/08/22 12/20/24 12/20/24 History mecobalamin (vitamin B12) 1 cap PO DAILY 01/08/22 12/20/24 12/20/24 History omeprazole 20 mg capsule,delayed 20 mg PO DAILY 01/08/22 12/20/24 12/20/24 History release ferrous sulfate 324 mg (65 mg 324 mg PO DAILY #14 tabs 03/02/22 12/20/24 12/18/24 Rx iron) tablet,delayed release duloxetine 20 mg capsule,delayed 30 mg .Route BID 04/22/23 12/20/24 12/21/24 History release (Cymbalta) fexofenadine 60 mg tablet (Britta 180 mg PO DAILY 10/06/23 12/20/24 12/12/24 History Allergy) meclizine 12.5 mg tablet 12.5 mg PO TID PRN dizzy 10/06/23 12/20/24 Unknown History lisinopril 5 mg tablet 5 mg PO DAILY 03/30/24 12/20/24 12/20/24 History pravastatin 10 mg tablet 10 mg PO DAILY 03/30/24 12/20/24 12/19/24 History pilocarpine HCl 5 mg tablet See Rx Instructions .Route 07/11/24 12/20/24 12/20/24 Rx .COMPLEX #270 tabs leflunomide 20 mg tablet 20 mg PO DAILY #30 tabs 08/08/24 12/20/24 12/20/24 Rx prednisone 5 mg tablet 5 mg PO DAILY #90 tabs 08/08/24 12/20/24 12/06/24 Rx pramipexole 0.25 mg tablet 0.25 mg PO TID #90 tabs 11/15/24 12/20/24 12/21/24 Rx Allergies Allergy/AdvReac Type Severity Reaction Status Date / Time gabapentin Allergy Severe ALGY-Swell Verified 12/14/24 10:22 Lip/Tongue/Throat PFSH Acute PFSH: Medical History Immunization counseling High risk medication use Inflammatory arthritis Primary Sjogren's syndrome Neurologic gait disorder Restless legs syndrome Mixed connective tissue disease Leukocytosis Microcytic hypochromic anemia Transaminitis Surgical History H/O: hysterectomy Hx of tonsillectomy History of cataract surgery both eyes - 2022 Family History Other Cancer Diabetes Hypertension Stroke Denies family history of Rheumatoid arthritis Lupus Hyperlipidemia Chronic kidney disease (CKD) Social History Smoking and tobacco/nicotine status: former use of tobacco/nicotine Quit status (tobacco/nicotine): has quit using Year quit tobacco: 20 years ago Former quit date comment: smoked for 10 years Second hand smoke exposure: No Alcohol intake: current Alcohol intake frequency: holidays/special occasions only Substance/Drug Use: never Vitals/I&O/Wt Last Vital Signs Temp 97.6 F 12/21/24 10:31 Pulse 89 12/21/24 10:31 Resp 18 12/21/24 10:31 BP 122/65 12/21/24 10:31 Pulse Ox 96 12/21/24 10:31 O2 Del Method Room Air 12/21/24 10:33 Weight last 48 hrs Weight 190 lb Physical Exam Narrative: On examination she has positive Tinel's and positive Phalen's test over the left carpal tunnel region. She does not have any thenar wasting at this time. She has sublight touch decree sensation over the median nerve distribution. She has no other deformities or abnormalities of the hand. Const: COMMON NORMALS: no acute distress, average body habitus and patient oriented x3 HENMT: COMMON NORMALS: normocephalic, atraumatic and hearing grossly normal bilaterally Eye: OTHER: Deferred Neck/C-Spine: COMMON NORMALS: full ROM, no lymphadenopathy and supple Chest: COMMONS NORMALS: normal inspection of the chest and normal palpation of entire chest wall Resp: COMMON NORMALS: normal respiratory effort, No retractions, No use of accessory muscles and clear to auscultation bilaterally Cardio: COMMON NORMALS: no JVD, regular rate, regular rhythm and Peripheral pulses 2+ throughout GI: OTHER: Deferred : OTHER: Deferred Back/Pelvis: COMMON NORMALS: thoracic and lumbar spine normal to inspection and no thoracic nor lumbar tenderness Extremity: OTHER: As per above Neuro: COMMON NORMALS: patient oriented x3 and moves all extremities Psych: COMMON NORMALS: mental status grossly normal, Normal thought process present, cooperative and normal affect Skin: COMMON NORMALS: no rashes or lesions noted A&P Assessment and plan (1) Left carpal tunnel syndrome: Patient has left carpal tunnel syndrome by EMG's as well as clinical exam and history Plan Plan at this time is for left carpal tunnel release PDMP PDMP Reviewed: Not Reviewed Attestations Medical Necessity Statement*: Patient in need of left carpal tunnel release to avoid further damage to the median nerve Coding Level of Care Code Critical Care >/= 30 minutes Diagnoses Left carpal tunnel syndrome G56.02
[2024-12-21] MEDS: ceFAZolin 1,000 mg SDV 2000 MG (11:19)
[2024-12-21] MEDS: ROPivacaine 0.5% SDV 30 mL 150 MG INJECTION (11:39)
[2024-12-21] MEDS: lidocaine-epi 1% 20 mL INJ INJECTION (11:39)
--- NOTE | 2024-12-21 11:50 | PM.OP ---
Operative Report Date of procedure: December 21, 2024 Surgeon: Domo Purdy MD Procedure: Preop diagnosis: Left carpal tunnel syndrome Postop diagnosis: Same Procedure: Left carpal tunnel release Surgeon: Domo Purdy MD Anesthesia: General EBL: None Tourniquet time: 7 minutes at 250 mmHg Indications: Kenisha is a 74-year-old white female who is referred the orthopedic clinics for evaluation of bilateral carpal tunnel syndrome. She has previously had a right carpal tunnel release in the past but this seems to be returning she also has EMG findings of compression of the nerve of her left carpal tunnel also. Symptoms are worse on her left hand and therefore at this time she been offered a left carpal tunnel release. All risk benefits treatment alternatives were discussed with her including but not limited to blood loss arranger infection. She is also warned that she may have permanent damage to the median nerve already due to the compression and all symptoms may not resolve after surgery. Patient is agreeable to proceed with surgical intervention at this time. Procedure: After obtaining written consent patient went to the operating room and still on her [facility] general anesthetic administered. Once good anesthesia was achieved left arm had pneumatic cuff placed on proximal left arm. Left arm was then prepped and draped usual fashion. After surgical timeout Esmarch exsanguination was applied to the arm and tourniquet was inflated 2 and 50 mL mercury. At this point longitudinal incision was made on the palmar surface of the palm just distal to the distal flexion crease and ulnar to the mid palmar crease. Incision was taken approximately 1 and half centimeters in distance. Sharp dissect taken on down to the subcutaneous tissue and then stop dissection taken all the way down the transverse carpal ligament. Transverse carpal ligament is divided along the course of skin incision. Once open Metzenbaum scissors and sharp and blunt fashion were used to released the transverse carpal ligament both medially and laterally. Once adequate release of been done wound was closed with running 3-0 nylon horizontal mattress suture. Wound was cleaned and dried dressed with Xeroform gauze, sterile gauze dressing, Kerlix wrap, Dev wrap for compression. Pneumatic cuff deflated at this time after 7 minutes total tourniquet time. Patient was then awakened transferred recovery room in stable condition
--- NOTE | 2024-12-21 11:55 | ANES.PREANE2 ---
Pre-Anesthetic Assessment Height/Weight: Height 1.52 m Weight 86.183 kg Temp Pulse Resp BP Pulse Ox O2 Del Method 97.6 F 89 18 122/65 96 Room Air 12/21/24 10:12/21/24 10:12/21/24 10:31 12/21/24 10:31 12/21/24 10:31 12/21/24 10:33 Operation Date: 12/21/24 13:20 Proposed Procedures p Left Carpal Tunnel Release(Left) - Domo Purdy MD Familial anesthetic complications: Noen Was Beta Hema taken within 24 hours: N/A Was Clonidine taken within 24 hours: N/A Last intake: Intake Last Liquid Date 12/21/24 Last Liquid Time 05:00 Last Solid Date 12/20/24 Last Solid Time 22:30 Social No alcohol and No tobacco Exam alert, oriented x 3, clear to auscultation bilaterally and regular rate & rhythm Airway Mallampati: Class II CV/HEM Hypertension GI Gastroesophageal Reflux Disease Neuropsych Cerebrovascular Accident Anesthetic Plan ASA status: 3 Anesthesia: MAC Risk of > 500 ml blood loss (7ml/kg in children): No Medications/Allergies Home Medications ?Medication ?Instructions ?Recorded ?Confirmed ?Last Taken ?Type cholecalciferol (vitamin D3) 125 mg PO DAILY 01/08/22 12/20/24 12/20/24 History mecobalamin (vitamin B12) 1 cap PO DAILY 01/08/22 12/20/24 12/20/24 History omeprazole 20 mg capsule,delayed 20 mg PO DAILY 01/08/22 12/20/24 12/20/24 History release ferrous sulfate 324 mg (65 mg 324 mg PO DAILY #14 tabs 03/02/22 12/20/24 12/18/24 Rx iron) tablet,delayed release duloxetine 20 mg capsule,delayed 30 mg .Route BID 04/22/23 12/20/24 12/21/24 History release (Cymbalta) fexofenadine 60 mg tablet (Britta 180 mg PO DAILY 10/06/23 12/20/24 12/12/24 History Allergy) meclizine 12.5 mg tablet 12.5 mg PO TID PRN dizzy 10/06/23 12/20/24 Unknown History lisinopril 5 mg tablet 5 mg PO DAILY 03/30/24 12/20/24 12/20/24 History pravastatin 10 mg tablet 10 mg PO DAILY 03/30/24 12/20/24 12/19/24 History pilocarpine HCl 5 mg tablet See Rx Instructions .Route 07/11/24 12/20/24 12/20/24 Rx .COMPLEX #270 tabs leflunomide 20 mg tablet 20 mg PO DAILY #30 tabs 08/08/24 12/20/24 12/20/24 Rx prednisone 5 mg tablet 5 mg PO DAILY #90 tabs 08/08/24 12/20/24 12/06/24 Rx pramipexole 0.25 mg tablet 0.25 mg PO TID #90 tabs 11/15/24 12/20/24 12/21/24 Rx Allergies Allergy/AdvReac Type Severity Reaction Status Date / Time gabapentin Allergy Severe ALGY-Swell Verified 12/14/24 10:22 Lip/Tongue/Throat FOR[facility] Anesthesia Medical History Immunization counseling High risk medication use Inflammatory arthritis Primary Sjogren's syndrome Neurologic gait disorder Restless legs syndrome Mixed connective tissue disease Leukocytosis Microcytic hypochromic anemia Transaminitis Surgical History H/O: hysterectomy Hx of tonsillectomy History of cataract surgery both eyes - 2022 Family History Other Cancer Diabetes Hypertension Stroke Denies family history of Rheumatoid arthritis Lupus Hyperlipidemia Chronic kidney disease (CKD) Social History Smoking and tobacco/nicotine status: former use of tobacco/nicotine Quit status (tobacco/nicotine): has quit using Year quit tobacco: 20 years ago Former quit date comment: smoked for 10 years Second hand smoke exposure: No Alcohol intake: current Alcohol intake frequency: holidays/special occasions only Substance/Drug Use: never Data Anesthesia Cardiac Studies: Echocardiogram 10/18/23
--- NOTE | 2024-12-21 13:15 | ANE.PACU2 ---
Inpatient post-anesthesia follow up: Airway intact: Yes Vital signs: Temperature 97.5 F Pulse Rate 90 Respiratory Rate 20 Blood Pressure 150/78 Pulse Oximetry 97 Oxygen Delivery Me thod Nasal Cannula Oxygen Flow Rate 2 Fraction of Inspir ed Oxygen Hydration adequate: Yes Nausea and vomiting: No Pain level: 1 Mental status: Baseline
== END 2024-12-21 13:15 | disposition home or self-care (01) ==
PROVIDERS: PCP Family Medicine; Visit Provider Orthopaedic Surgery
PROC: (CPT 64721; principal; 2024-12-21 13:10)
DX: G56.03 Carpal tunnel syndrome, bilateral upper limbs (principal); M35.00 Sjogren syndrome, unspecified; Z79.899 Other long term (current) drug therapy; Z88.8 Allergy status to other drugs, medicaments and biological substances; Z79.52 Long term (current) use of systemic steroids; Z87.891 Personal history of nicotine dependence
CPT/HCPCS: 64721; J0330; J0690; J1100; J2405; J2704; J2795; J3010; J9999

== ENCOUNTER → 2025-01-04 08:59 | Outpatient (BNVA) | payer MEDICARE, SELFPAY | PROVIDERS: PCP Family Medicine; Visit Provider Orthopaedic Surgery | DX: Z98.890 Other specified postprocedural states (principal) | CPT/HCPCS: 99024 ==

== ENCOUNTER → 2025-01-25 14:47 | Outpatient (BNVA) | payer MEDICARE, SELFPAY | PROVIDERS: PCP Family Medicine; Visit Provider Nurse Practitioner Family | DX: I87.2 Venous insufficiency (chronic) (peripheral) (principal); L91.8 Other hypertrophic disorders of the skin; L81.4 Other melanin hyperpigmentation; M79.3 Panniculitis, unspecified; L57.8 Other skin changes due to chronic exposure to nonionizing radiation; X32.XXXA Exposure to sunlight, initial encounter; Z08 Encounter for follow-up examination after completed treatment for malignant neoplasm; Z85.828 Personal history of other malignant neoplasm of skin; D48.5 Neoplasm of uncertain behavior of skin | CPT/HCPCS: 11102; 99214 ==

== ENCOUNTER → 2025-02-13 10:05 | Outpatient (BNVA) | payer MEDICARE, SELFPAY | PROVIDERS: PCP Family Medicine; Visit Provider Orthopaedic Surgery | DX: Z98.890 Other specified postprocedural states (principal) | CPT/HCPCS: 99024 ==

== ENCOUNTER → 2025-02-22 08:02 | Outpatient (BNVA) | payer MEDICARE, SELFPAY | PROVIDERS: PCP Family Medicine; Visit Provider Internal Medicine Rheumatology | DX: Z79.899 Other long term (current) drug therapy (principal) | CPT/HCPCS: 80076; 82565; 85025; 85651; 86140 ==

== ENCOUNTER → 2025-02-28 13:44 | Outpatient (BNVA) | payer MEDICARE, SELFPAY | PROVIDERS: PCP Family Medicine; Visit Provider Internal Medicine Rheumatology | DX: R76.8 Other specified abnormal immunological findings in serum (principal); M35.00 Sjogren syndrome, unspecified; M19.90 Unspecified osteoarthritis, unspecified site; Z79.899 Other long term (current) drug therapy; Z71.85 Encounter for immunization safety counseling | CPT/HCPCS: 99214 ==

== ENCOUNTER → 2025-03-21 14:20 | Outpatient (BNVA) | payer MEDICARE, SELFPAY | PROVIDERS: PCP Family Medicine; Visit Provider Specialist | DX: G25.81 Restless legs syndrome (principal); R42 Dizziness and giddiness; R48.2 Apraxia; M79.7 Fibromyalgia; E66.9 Obesity, unspecified; R26.9 Unspecified abnormalities of gait and mobility; M48.062 Spinal stenosis, lumbar region with neurogenic claudication; M75.80 Other shoulder lesions, unspecified shoulder; E61.1 Iron deficiency; R20.0 Anesthesia of skin; R20.2 Paresthesia of skin; Z98.1 Arthrodesis status | CPT/HCPCS: 99213 ==

== ENCOUNTER 2025-03-29 11:16 | Outpatient (CLI) | payer MEDICARE, SELFPAY ==
[2025-03-29 13:07] LABS: Alanine Aminotransferase 58 U/L (0-33); Albumin Level 3.5 g/dL (3.5-5.2); Alkaline Phosphatase 145 U/L (35-105); Aspartate Amino Transferase 55 U/L (0-32); Ferritin 389 ng/mL (15-150); Globulin 3.1 g/dL (1.3-4.6); Iron 98 ug/dL (37-145); Total Iron Binding Capacity 247 mcg/dl; Total Protein 6.6 g/dL (6.6-8.7); Unsaturated Iron Binding 149 ug/dL (112-347)
== END 2025-03-29 11:17 | disposition home or self-care (01) ==
LOC: LAB 11:17
PROVIDERS: Specialist; PCP Family Medicine; Visit Provider Internal Medicine Rheumatology
DX: G25.81 Restless legs syndrome (principal); D50.9 Iron deficiency anemia, unspecified; R74.8 Abnormal levels of other serum enzymes
CPT/HCPCS: 36415; 80076; 82728; 83540; 83550

== ENCOUNTER → 2025-06-11 09:50 | Outpatient (BNVA) | payer MEDICARE, SELFPAY | PROVIDERS: PCP Family Medicine; Visit Provider Internal Medicine Rheumatology | DX: Z79.899 Other long term (current) drug therapy (principal) | CPT/HCPCS: 80076 ==

== ENCOUNTER 2025-07-13 10:09 | Outpatient (CLI) | payer MEDICARE, SELFPAY ==
[2025-07-13 10:55] LABS: Alanine Aminotransferase 45 U/L (0-33); Albumin Level 3.5 g/dL (3.5-5.2); Alkaline Phosphatase 136 U/L (35-105); Aspartate Amino Transferase 52 U/L (0-32); Globulin 3.0 g/dL (1.3-4.6); Total Protein 6.5 g/dL (6.6-8.7)
== END 2025-07-13 10:10 | disposition home or self-care (01) ==
LOC: LAB 10:11
PROVIDERS: PCP Family Medicine; Visit Provider Internal Medicine Rheumatology
DX: R17 Unspecified jaundice (principal)
CPT/HCPCS: 36415; 80076; 82657